=== PATIENT | male | born 1950 | race Caucasian/White ===

== ENCOUNTER 2019-01-23 06:51 | Inpatient (IN) | payer OTHER ==
[~2019-01-23] VITALS: Ht 172.7 cm; Wt 101.6 kg
[~2019-01-23 06:51] MED LIST: ALLEGRA-D 24 H1 EACH PO; ALLEGRA60 MG; CHANTIX1 MG PO; CRESTOR5 MG PO; XARELTO10 M1 PO; XARELTO15 MG PO
[2019-01-23 09:07] LABS: HEMATOCRIT 46.9 % (42.0-52.0); HEMOGLOBIN 15.6 gm/dL (14.0-18.0)
[2019-01-23 09:51] VITALS: BP 121/71
[2019-01-23 14:54] VITALS: BP 113/60
[2019-01-23 22:15] VITALS: BP 110/62
[2019-01-24 00:25] VITALS: BP 110/69; BP 128/59
[2019-01-24 04:05] VITALS: BP 102/51
[2019-01-24 05:57] LABS: HEMATOCRIT 40.3 % (42.0-52.0); MCH 31.3 pg (26.0-34.0); MCHC 32.4 g/dL (28.0-37.0); MCV 96.6 fL (80.0-100.0); RBC 4.17 mil/uL (4.50-6.00); RDW 13.5 % (10.5-14.5); WBC 16.5 thou/uL (4.0-11.0)
[2019-01-24 06:01] LABS: HEMOGLOBIN 13.1 gm/dL (14.0-18.0)
[2019-01-24 06:14] LABS: CALCIUM 8.8 mg/dL (8.5-10.1); POTASSIUM 4.4 mmol/L (3.5-5.1)
--- NOTE | 2019-01-24 07:58 | EKG ---
[address] [address] ELECTROCARDIOGRAM REPORT Name: DARBY RICHARDSON Room #: 447-P ADM IN M.R.#: [id number] Admission: 01/23/19 Attend Phys: Jay Washington MD, Discharge: Date of : 46 Report #: [id number] THIS REPORT FOR: //name// [facility] Test Date: 2019-01-23 Test Time: 09:10:53 Pat Name: DARBY RICHARDSON Department: Room: [facility] Gender: M Site Engineer: landy : 1950 Requested By: Jay Washington Order Number: [id number] MD: Alexis Sullivan Measurements Intervals [place] Rate: 56 P: 53 [place]: 157 QRS: -11 QRSD: 132 T: 51 QT: 449 QTc: 434 Interpretive Statements Sinus rhythm Nonspecific intraventricular conduction delay Compared to ECG 06/01/2012 12:01:01 Intraventricular conduction delay now present Electronically Signed On 01-24-2019 7:58:05 INTENSIVIST by Alexis Sullivan [email or web address] <ELECTRONICALLY SIGNED> By: Alexis Sullivan MD, [facility] 01/24/19 0758 0910 Alexis Sullivan MD, [facility] /EPI
[2019-01-24 08:27] VITALS: BP 107/58
[2019-01-24 20:09] VITALS: BP 128/59
[2019-01-25 05:24] LABS: ABSOLUTE NEUTROPHILS 9.8 thou/uL (1.4-8.2); BASOPHILS 0.2 % (0.0-2.0); EOSINOPHILS 0.3 % (0.0-3.0); HEMATOCRIT 41.2 % (42.0-52.0); HEMOGLOBIN 13.6 gm/dL (14.0-18.0); LYMPHOCYTES 24.2 % (24.0-44.0); MCH 31.7 pg (26.0-34.0); MCV 96.2 fL (80.0-100.0); MONOCYTES 6.8 % (1.0-8.0); PLATELET COUNT 186 thou/uL (150-400); POLYS 68.5 % (36.0-66.0); RBC 4.29 mil/uL (4.50-6.00); RDW 13.6 % (10.5-14.5); WBC 14.3 thou/uL (4.0-11.0)
[2019-01-25 05:45] LABS: CALCIUM 8.8 mg/dL (8.5-10.1); CREATININE 0.8 mg/dL (0.7-1.3); POTASSIUM 3.9 mmol/L (3.5-5.1)
[2019-01-25 08:32] VITALS: BP 141/73
[2019-01-25 16:11] VITALS: BP 141/73
--- NOTE | 2019-01-26 16:06 | PATH ---
[facility] [place] [address] PATHOLOGY RPT PROCEDURE Name: DARBY RICHARDSON Room #: 447-P DIS IN M.R.#: [id number] Admission: 01/23/19 Date of : 46 Discharge: 01/25/19 Report #: [id number] Path Case #: [id number] [facility] Accession Number: [id number] . 01 Material submitted: . PART A: colon - SIGMOID COLON - OPEN END IS DISTAL. Modifiers: sigmoid PART B: colon - ANASTOMOTIC RINGS . 01 Clinical history: . Benign neoplasm of sigmoid colon . 02 Diagnosis: A. 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 - Margins of resection free of malignancy; closest proximal mucosal margin is 3.1 cm away. - Seventeen reactive pericolic lymph nodes without any malignancy (0/17). - 1.3 cm nodule identified within the mesentery showing fat necrosis and dystrophic calcification; negative for malignancy. . B. Anastomotic rings: - Large intestine mucosa without any high-grade dysplasia or malignancy. (IUV:gail; 01/26/2019) . . Surgical Pathology Cancer Case Summary . Protocol posting date: July 2016 . . COLON AND RECTUM: Resection, Including Transanal Disk Excision of Rectal Neoplasms . Procedure ___ Sigmoidectomy . Tumor Site ___ Sigmoid colon . Tumor Size Greatest dimension (centimeters): 3.0 cm . Macroscopic Tumor Perforation ___ Not identified . Histologic Type ___ Adenocarcinoma [address] [address] PATHOLOGY RPT PROCEDURE Name: SARTHAKHÉCTORDARBY Room #: 447-P DIS IN ..#: [id number] Admission: 01/23/19 Date of : 46 Discharge: 01/25/19 Report #: [id number] Path Case #: [id number] . Histologic Grade ___ G2: Moderately differentiated . Tumor Extension ___ Tumor invades muscularis propria . Margins ___ All margins are uninvolved by invasive carcinoma, high-grade dysplasia, intramucosal adenocarcinoma, and adenoma Margins examined: Distance of invasive carcinoma from closest margin: 3.1 cm Specify closest margin: proximal margin . Treatment Effect ___ No known presurgical therapy . Lymphovascular Invasion ___ Not identified . Perineural Invasion ___ Not identified . Tumor Deposits ___ Not identified . Regional Lymph Nodes . Number of Lymph Nodes Involved: 0 . Number of Lymph Nodes Examined: 17 Pathologic Stage Classification (pTNM, AJCC 8th Edition) Note: Reporting of pT, pN, and (when applicable) pM categories is based on information available to the pathologist at the time the report is issued. . Primary Tumor (pT) ___ pT2: Tumor invades the muscularis propria . Regional Lymph Nodes (pN) ___ pN0: No regional lymph node metastasis . Distant Metastasis (pM) (required only if confirmed pathologically in this case) ___ pMx: Not known QMS 01/26/2019 1600 Local . 02 Comment: [facility] [address] [facility] [place] [address] PATHOLOGY RPT PROCEDURE Name: DARBY RICHARDSON Room #: 447-P [facility] IN M.R.#: [id number] Admission: 01/23/19 Date of : 46 Discharge: 01/25/19 Report #: [id number] Path Case #: [id number] Multiple properly controlled immunohistochemical stains are performed due to a trabecular pattern along with gland formation identified within the malignancy. The tumor shows strong nuclear reactivity with CDX-2 supporting a gastrointestinal primary. CK20 shows patchy membranous reactivity within approximately 5% of cells. Synaptophysin and chromogranin are nonreactive arguing against a neuroendocrine origin for this tumor. . Findings of this case are conveyed to Dr. Jay Washington at approximately 11:30 a.m. on 01/25/2019. . (IUV:gail; 01/26/2019) . 02 Electronically signed: . Shari Whitaker MD, Pathologist NPI- [id number] . 01 Gross description: . A. The specimen is received in formalin, labeled "Darby Richardson, sigmoid colon" and consists of an oriented segment of colon measuring 10.0 cm in length and ranging from 2.0-3.7 cm in diameter. There is pericolic fat measuring up to 4.8 cm. One margin is open (designated distal) while the other has a staple line. The serosa is pink-villatoro with scattered hemorrhage. Opening reveals a sessile polypoid pink-villatoro tumor mass measuring 3.0 x 2.9 cm that is 3.1 cm from proximal, 4.9 cm from distal, and greater than 1 cm from the mesenteric margin. The specimen is placed in formalin for overnight fixation. (SDY; 01/23/2019) . After overnight fixation the serosa is inked black and mesenteric margin blue. Sectioning the mass no gross invasion of the muscular wall. No additional polyps or mass lesions are identified. Present within the pericolic tissue is a 1.3 x 1.0 cm nodule. Sectioning reveals cut surfaces consistent with fat necrosis. Multiple reveal multiple lymph node candidates are present measuring up to 0.8 cm. Removable Prosthodontist sections are submitted as follows: . A1: Open distal margin A2: Proximal margin A3: Mesenteric margin A4-A10: Mass to include entire base (A4-A5: Full-thickness tallest segment of mass) A11-A12: Nodule with fat necrosis A13: 2 bisected lymph nodes, one inked black A14: 2 bisected lymph nodes, one inked blue A15: 5 intact lymph node candidates A16: 2 bisected lymph nodes, one inked black A17: 3 intact lymph node candidates [address] [address] PATHOLOGY RPT PROCEDURE Name: DARBY RICHARDSON Room #: 447-P [facility] IN M.R.#: [id number] Admission: 01/23/19 Date of : 46 Discharge: 01/25/19 Report #: [id number] Path Case #: [id number] . B. The specimen is received in formalin, labeled "Hurshman, Darby, anastomotic rings" and consists of 2 pink-villatoro mucosal donuts measuring 2.5 x 1.8 x 1.0 cm and 2.0 x 1.6 x 0.5 cm. No gross lesions identified and a construction sales representative sections from each is submitted in B1. (SDY; 01/24/2019) SYU/SYU 01/26/2019 1333 Local . 02 Pathologist provided ICD-10: C18.7 . 02 CPT . 468160, 979807, J62105, E91347 Specimen Comment: A courtesy copy of this report has been sent to [phone] Specimen Comment: [phone] Specimen Comment: Report sent to and Performed at: [address], [place] [id number] MD Shadi Lara MD Phone: [phone] Performed at: [address] [id number] MD Shari Whitaker MD Phone: [phone]
--- NOTE | 2019-01-29 13:43 | O ---
[facility] [place] [address] OPERATIVE REPORT Name: DARBY RICHARDSON Room #: 447-P [facility] IN M.R.#: [id number] Admission: 01/23/19 Attend Phys: Jay Washington MD, Discharge: 01/25/19 Date of : 46 Report #: [id number] THIS REPORT FOR: //name// CC: Altaf Patel MD [facility] physician/PCP Jay Washington DATE OF SERVICE: 01/23/2019 PREOPERATIVE DIAGNOSES: Unresectable rectosigmoid polyp without biopsy proven malignancy. POSTOPERATIVE DIAGNOSES: Unresectable rectosigmoid polyp without biopsy proven malignancy. PROCEDURES PERFORMED: 1. Laparoscopic sigmoid colectomy. 2. Laparoscopic mobilization of splenic flexure. 3. Rigid proctoscopy. 4. Laparoscopic suture repair of an incarcerated umbilical hernia. SURGEON: Jay Washington M.D. SEWING LINE BALER: Jaylen Quiroz DO. ANESTHESIA: General endotracheal anesthesia. ESTIMATED BLOOD LOSS: Minimal (less than 10 mL). COMPLICATIONS: None appreciated. SPECIMENS: Sigmoid colon to pathology. INDICATIONS: The patient is a 68-year-old male who presented for a screening colonoscopy at which time a large mucosal mass was identified at the rectosigmoid juncture, which underwent biopsy and tattooing with pathology returning no evidence of malignancy. Due to the extreme size of the mass, indication was for sigmoid colectomy. DESCRIPTION OF PROCEDURE: After explaining the risks, benefits and alternatives of the procedure with the patient in detail in the preoperative holding area and obtaining written consent, the patient was brought to the operating room and placed supine on the operating room table. After conducting a thorough timeout procedure verifying correct patient and procedure, the patient was given general endotracheal anesthesia. Once adequate anesthesia was obtained, his SCDs were hooked up to pneumatic compression device. He was given a preoperative dose of [facility] [address] [place] [address] OPERATIVE REPORT Name: DARBY RICHARDSON Room #: 447-P [facility] IN [facility].#: [id number] Admission: 01/23/19 Attend Phys: Jay Washington MD, Discharge: 01/25/19 Date of : 46 Report #: [id number] antibiotics in line with the SCIP protocol. The patient's abdomen was now prepped and draped in standard surgical sterile fashion after positioning him in the low lithotomy position with his legs in the Yellofin stirrups. It should be noted he did complete a preoperative bowel prep with excellent success. 5 mL of 0.5% Marcaine with epinephrine was used to anesthetize the skin 2 cm cephalad to the umbilicus and 2 cm to the patient's right. A #15 bladed scalpel was used to create a small skin thi at this location. A 5 mm Visiport was placed over 0 degree 5 mm laparoscope and was introduced through this incision site. Once intra-abdominal placement was verified visually, the obturator for the trocar and laparoscope were both removed and the abdomen was insufflated to 15 mmHg using carbon dioxide gas. The laparoscope was changed to a 5-mm 30-degree laparoscope, which was reintroduced through this trocar. The entire abdomen was evaluated to ensure no injury upon entry. I now placed 2 additional trocars under direct vision. A 5 mm port was placed in the left mid abdomen at the level 2 cm cephalad to the umbilicus and 4 cm to the patient's left, as well as a 12 mm port in the right lower quadrant. Both additional trocars were placed under direct vision after anesthetizing the skin at each location with 5 mL of 0.5% Marcaine with epinephrine. I created appropriately sized skin nicks using #15 bladed scalpel. The patient was now placed in Trendelenburg position with the left side elevated and I proceeded to easily identify the tattooed mass in question. This appeared to be at the distal sigmoid colon. The mass was elevated into the upper abdomen putting the rectum on stretch and I proceeded to open the mesentery at the juncture of the rectosigmoid using the articulating EnSeal device. I then entered an Halbur 60 mm stapler with a blue load into the abdomen through the 12-mm trocar in the right lower quadrant and 1 blade was passed through the mesentery where it was then clamped and fired completely transecting the bowel at a healthy location approximately 5 cm away from the mass in question. I now proceeded to take down the mesentery of the colon in a retrograde fashion using the EnSeal device as low in the mesentery as possible to ensure adequate louisa sampling in case this returned as malignancy. This was taken down as far cephalad as needed to obtain adequate margins proximally. As the patient does have an umbilical hernia, I did elect to make my extraction site at the periumbilical tissues. Once I had full mobilization, I desufflated the abdomen and proceeded to create a periumbilical incision using #15 blade scalpel to the left of the umbilicus. This was carried down through skin and subcutaneous tissues using electrocautery until I arrived upon the hernia sac, which was opened. I then placed an Abhi wound protector through this defect and delivered the colon through here. I then used the auto pursestring suture device to transect the bowel in an appropriate location. It was still well vascularized, but far enough away from the mass itself. A #10 bladed scalpel was used to transect the bowel and this was passed off the field to pathology. The auto pursestring suture device was removed and the end of bowel was sized using the EEA sizers showing the appropriate sized EEA stapler to be a 31. The anvil was placed in the open end and the suture was tied down around the post and it was placed back in the abdomen where the Abhi cap was placed. The abdomen was reinsufflated and attempts at having the anvil reach the rectal [facility] [address] [place] [address] OPERATIVE REPORT Name: DARBY RICHARDSON Room #: 447-P DIS IN M.R.#: [id number] Admission: 01/23/19 Attend Phys: Jay Washington MD, Discharge: 01/25/19 Date of : 46 Report #: [id number] stump showed that while it could reach it was under significant stretch. I therefore mobilized the entire splenic flexure using the EnSeal device to take down the white line of Toldt all the way up around the splenic flexure, which allowed for significant laxity to our proceeding anastomosis. We now proceeded to size the rectal stump using the EEA sizers and once appropriately sized 31 EEA stapler was placed through the rectal stump delivered all the way to the end of the staple line where the spike was delivered. I was able to easily mate the anvil to the spike ensuring no twisting to the bowel, ratcheted it down the stapler and fired, completely performing the anastomosis with excellent beefy intact anastomotic rings upon evaluation. The anastomotic donuts were also sent for pathologic evaluation. We now performed a leak test using a rigid proctoscope. The proctoscope was placed up the rectal stump and was used to fully insufflate the bowel while clamping it proximal to the anastomosis and filling the pelvis with normal saline. We saw no evidence of bubbling whatsoever, thereby signifying a negative leak test. The pelvis was fully evacuated with a suction photographer aerial device and evaluation of the anastomosis showed it to be intact with no evidence of pathology. As the patient is a quite large, I did elect to remove the Abhi retractor and closed the skin using penetrating towel clips. I then utilized 0 PDS intracorporeally to suture the extraction site at the periumbilical region close which also incorporated suture repair of the patient's umbilical hernia that was present at the outset. The needle was removed and passed off the field. I then closed the 12 mm fascial incision using 0 PDS suture on the Ortiz-Kalpana suture passer device and tied this down under direct vision as well. One final evaluation of the intra-abdominal domain showed no further evidence of pathology. The patient's abdomen was fully desufflated. All remaining trocars were removed under direct vision. A 4-0 Monocryl was used in a standard subcuticular fashion for all skin incisions and Dermabond glue was applied to all skin wounds. At the end of the procedure, all instrument, needle and sponge counts were correct. The patient tolerated the procedure without incident, was awakened in the operating room, transitioned to the recovery room in stable condition with no apparent complications. <ELECTRONICALLY SIGNED> By: Jay Washington MD, FACS 01/29/19 1343 0956 [id number] Jay Washington MD, FACS /nt
== END 2019-01-25 16:56 | disposition home or self-care (01) | DRG 330 ==
LOC: PRE 06:51 → 4S 08:24 → TBA 08:24 → PRE 09:47 → 4S 14:36
PROVIDERS: ADMIT Surgery
PROC: 0WQF4ZZ Repair Abdominal Wall, Percutaneous Endoscopic Approach (ICD-10-PCS; principal; 2019-01-23)
PROC: 0DJD8ZZ Inspection of Lower Intestinal Tract, Via Natural or Artificial Opening Endoscopic (ICD-10-PCS; principal; 2019-01-23)
PROC: 0DBN4ZZ Excision of Sigmoid Colon, Percutaneous Endoscopic Approach (ICD-10-PCS; principal; 2019-01-23)
DX: K63.5 Polyp of colon (principal); K42.0 Umbilical hernia with obstruction, without gangrene
CPT/HCPCS: 10102; 50010; 50101; 50249; 50386; 50525; 50555; 50558; 50804; 51489; 52265; 53307; 54022; 54118; 56462; 56525; 56526; 56753; 57092; 62110; 62900; 70005